=== PATIENT | male | born 2000 | race African-American/Black ===

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

== ENCOUNTER 2021-11-18 18:18 | Emergency (ER) | payer OTHER ==
[~2021-11-18] VITALS: Ht 177.8 cm; Wt 95.3 kg
[~2021-11-18 18:18] MED LIST: CYCL-707 PO; KETO10TAB PO
[2021-11-18 18:19] VITALS: BP 165/82
[2021-11-18] MEDS ORDERED: LIDOCAINE 2% MDV 20ML VIAL SC ONE (20:45)
== END 2021-11-18 21:19 | disposition home or self-care (01) ==
LOC: M ED 18:18
DX: S63.256A Unspecified dislocation of right little finger, initial encounter (principal); W21.05XA Struck by basketball, initial encounter; Y93.67 Activity, basketball; Y92.9 Unspecified place or not applicable; Y99.9 Unspecified external cause status